=== PATIENT | female | born 1965 | race Caucasian/White ===

== ENCOUNTER 2018-08-24 15:44 | Emergency (ER) | payer OTHER, MEDICARE ==
[~2018-08-24] VITALS: Ht 170.2 cm; Wt 84.1 kg
[~2018-08-24 15:44] MED LIST: DULO30CA2 PO; FENO145T PO; ISOS30TA11 PO; METAMUCIL1 PKT PO; METF-960 PO; NITR0.4I3 SL; SIMV20TA6 PO; SODI104S3 NS; TRAZ150 PO; VICOT PO; [UNRECOGNIZED DRUG - CODE] PO; [UNRECOGNIZED DRUG - CODE] PO
[2018-08-24] MEDS ORDERED: NITROGLYCERIN 2% (1 GM=INCH) PACKET TP ONE (16:30)
[2018-08-24] MEDS ORDERED: CloNIDine HCL 0.1 MG TABLET PO ONE (16:30)
[2018-08-24] MEDS ORDERED: ACETAMINOPHEN 325 MG TABLET PO ONE (16:30)
[2018-08-24 16:54] LABS: BASOPHILS % (AUTO) 0.8 % (0.0-2.0); HEMATOCRIT 34.2 % (36-46); HEMOGLOBIN 11.4 g/dL (12.0-16.0); LYMPHOCYTES # (AUTO) 1.8 K/uL (1.0-4.8); LYMPHOCYTES % (AUTO) 30.9 % (22.0-44.0); MEAN CORPUSCULAR HEMOGLOBIN 27.1 pg (26.0-34.0); MEAN CORPUSCULAR HGB CONC 33.2 G/dL (31.0-37.0); MEAN CORPUSCULAR VOLUME 82 fL (80-100); MONOCYTES # (AUTO) 0.4 K/uL (0.1-1.0); MONOCYTES % (AUTO) 6.8 % (2.0-9.0); NEUTROPHILS # (AUTO) 3.4 K/uL (1.8-7.7); NEUTROPHILS % (AUTO) 58.5 % (40.0-70.0); PLATELET COUNT (AUTO) 278 K/uL (150-450); RED BLOOD CELL COUNT(AUTO) 4.19 MIL/uL (4.00-5.20); RED CELL DISTRIBUTION WIDTH 15.4 % (11.5-14.5)
[2018-08-24 17:19] LABS: INR 0.9 (0.9-1.1); PROTHROMBIN TIME 9.6 SEC (9.4-11.6)
[2018-08-24 17:35] LABS: ANION GAP 10 mmol/L (8-16); CALCIUM, TOTAL 8.5 mg/dL (8.8-10.5); CARBON DIOXIDE 27 mmol/L (22-29); CHLORIDE 102 mmol/L (98-107); CREATININE 0.71 mg/dL (0.60-1.30); GLOMERULAR FILTR. RATE CALC > 60 mL/min (>60); GLUCOSE,RANDOM 104 mg/dL (70-110); POTASSIUM 3.8 mmol/L (3.5-5.1); SODIUM SERUM 139 mmol/L (136-145); UREA NITROGEN, BLOOD 15 mg/dL (7-18)
[2018-08-24 17:40] LABS: B-TYPE NATRIURETIC PEPTIDE 50 pg/mL (0-100)
[2018-08-24 17:41] LABS: ALANINE AMINOTRANSFERASE 59 U/L (12-78); ALBUMIN 3.4 g/dL (3.4-5.0); ALKALINE PHOSPHATASE 135 U/L (46-116); ASPARTATE AMINOTRANSFERASE 27 U/L (15-37); BILIRUBIN,TOTAL 0.1 mg/dL (0.1-1.0); CREATINE KINASE, TOTAL ONLY 56 U/L (26-192); TOTAL PROTEIN, SERUM 7.5 g/dL (6.4-8.2)
[2018-08-24 17:48] LABS: APPEARANCE,URINE CLEAR (CLEAR)
[2018-08-24 17:49] LABS: BILIRUBIN,URINE NEGATIVE (NEGATIVE); GLUCOSE, URINE (UA) NEGATIVE (NEGATIVE); KETONES,URINE NEGATIVE (NEGATIVE); LEUKOCYTE ESTERASE ,URINE NEGATIVE (NEGATIVE); NITRATE,URINE NEGATIVE (NEGATIVE); OCCULT BLOOD,URINE NEGATIVE (NEGATIVE); PROTEIN,URINE NEGATIVE (NEGATIVE); UROBILINOGEN,URINE 0.2 mg/dL (<=1.0)
[2018-08-24 20:10] VITALS: BP 157/86
== END 2018-08-24 20:27 | disposition home or self-care (01) ==
LOC: EMS 15:44
DX: I10 Essential (primary) hypertension (principal); E11.9 Type 2 diabetes mellitus without complications; F17.210 Nicotine dependence, cigarettes, uncomplicated; Z88.2 Allergy status to sulfonamides; Z88.0 Allergy status to penicillin; Z79.84 Long term (current) use of oral hypoglycemic drugs
CPT/HCPCS: 93005

== ENCOUNTER 2020-03-04 21:52 | Emergency (ER) | payer MEDICARE, OTHER ==
[~2020-03-04] VITALS: Ht 162.6 cm; Wt 95.5 kg
[~2020-03-04 21:52] MED LIST changes: -DULO30CA2 PO; +DULO30CA96 PO; +SIMV-43 PO; -SIMV20TA6 PO
[2020-03-04] MEDS ORDERED: IBUP-2271 PO (23:31)
[2020-03-04] MEDS ORDERED: DIPH25CA85 PO (23:31)
[2020-03-05] MEDS ORDERED: HYDROmorphone 2 MG/ML SYRINGE IVP ONE (00:45)
[2020-03-05] MEDS ORDERED: ONDANSETRON HCL 4 MG/2 ML VIAL IVP ONE (00:45)
[2020-03-05] MEDS ORDERED: KETOROLAC TROMETHAMINE 30 MG/ML VIAL IVP ONE (00:45)
[2020-03-05] MEDS ORDERED: BACITRACIN 0.9 GM PACKET OINTMENT TP ONE (02:00)
[2020-03-05] MEDS ORDERED: PERTUSS(ACELL),DIPH,TET VAC/PF 0.5 ML VIAL IM ONE (02:00)
[2020-03-05] MEDS ORDERED: HYDROCODONE/ACETAMINOPHEN 5-325 MG TABLET PO ONE (02:00)
[2020-03-05 03:09] VITALS: BP 195/88
== END 2020-03-05 04:01 | disposition home or self-care (01) ==
LOC: EMS 21:52
DX: S42.252A Displaced fracture of greater tuberosity of left humerus, initial encounter for closed fracture (principal); S80.211A Abrasion, right knee, initial encounter; Z88.0 Allergy status to penicillin; Z88.8 Allergy status to other drugs, medicaments and biological substances; F17.210 Nicotine dependence, cigarettes, uncomplicated; W01.0XXA Fall on same level from slipping, tripping and stumbling without subsequent striking against object, initial encounter; Y93.89 Activity, other specified; Y92.89 Other specified places as the place of occurrence of the external cause; Y99.8 Other external cause status
CPT/HCPCS: 29105; 71045; 72040; 73060; 73090; 73130; 90471; 90715; 96374; 96375; 99284; 99406; J1170; J1885; J2405

== ENCOUNTER 2020-06-01 13:57 | Emergency (ER) | payer MEDICARE, OTHER ==
[~2020-06-01] VITALS: Ht 162.6 cm; Wt 100.0 kg
[~2020-06-01 13:57] MED LIST changes: +DIPH25CA85 PO; -DULO30CA96 PO; -FENO145T PO; +IBUP-2759 PO; -ISOS30TA11 PO; -METAMUCIL1 PKT PO; -METF-960 PO; -NITR0.4I3 SL; -SIMV-43 PO; -SODI104S3 NS; -VICOT PO; -[UNRECOGNIZED DRUG - CODE] PO; -[UNRECOGNIZED DRUG - CODE] PO
[2020-06-01] MEDS ORDERED: HYDR-1475 PO (14:35)
[2020-06-01] MEDS ORDERED: FERR-82 PO (14:35)
[2020-06-01] MEDS ORDERED: BUSP15 PO (14:35)
[2020-06-01] MEDS ORDERED: METF-960 PO (14:35)
[2020-06-01] MEDS ORDERED: ATOR40TA28 PO (14:36)
[2020-06-01] MEDS ORDERED: MORPHINE SULFATE 15 MG IR TABLET PO ONE (15:45)
[2020-06-01] MEDS ORDERED: ACETAMINOPHEN 325 MG TABLET PO ONE (16:00)
[2020-06-01] MEDS ORDERED: LIDOCAINE 5% TRANSDERMAL PATCH TD ONE (16:00)
[2020-06-01 17:07] LABS: CREATININE 1.28 mg/dL (0.60-1.30); POTASSIUM 3.4 mmol/L (3.5-5.1)
[2020-06-01 17:12] LABS: ALBUMIN 3.7 g/dL (3.4-5.0); BILIRUBIN,TOTAL 0.2 mg/dL (0.1-1.0); TOTAL PROTEIN, SERUM 7.7 g/dL (6.4-8.2)
[2020-06-01 18:41] VITALS: BP 212/115
== END 2020-06-01 19:06 | disposition home or self-care (01) ==
LOC: EMS 14:34
DX: M54.5 Low back pain (principal); M54.6 Pain in thoracic spine; I10 Essential (primary) hypertension; Z88.2 Allergy status to sulfonamides; Z79.899 Other long term (current) drug therapy; Z79.84 Long term (current) use of oral hypoglycemic drugs; Z88.8 Allergy status to other drugs, medicaments and biological substances
CPT/HCPCS: 72072; 72100

== ENCOUNTER 2022-11-13 15:24 | Emergency (ER) | payer MEDICARE, OTHER ==
[~2022-11-13] VITALS: Ht 162.6 cm; Wt 72.7 kg
[~2022-11-13 15:24] MED LIST changes: +ATOR40TA28 PO; +BUSP15 PO; +FERR-82 PO; +HYDR25TA2 PO; -IBUP-2759 PO; +METF-1211 PO; -TRAZ150 PO
[2022-11-13] MEDS ORDERED: MECLIZINE HCL 25 MG TABLET PO ONE (15:45)
[2022-11-13] MEDS ORDERED: ONDANSETRON HCL 4 MG TABLET PO ONE (15:45)
[2022-11-13 15:58] LABS: BASOPHILS % (AUTO) 0.6 % (0.0-2.0); EOSINOPHILS % (AUTO) 1.9 % (1.0-6.0); HEMATOCRIT 35.1 % (36-46); HEMOGLOBIN 11.4 g/dL (12.0-16.0); LYMPHOCYTES # (AUTO) 1.9 K/uL (1.0-4.8); LYMPHOCYTES % (AUTO) 16.7 % (22.0-44.0); MEAN CORPUSCULAR HEMOGLOBIN 27.1 pg (26.0-34.0); MEAN CORPUSCULAR HGB CONC 32.4 G/dL (31.0-37.0); MEAN CORPUSCULAR VOLUME 84 fL (80-100); MONOCYTES # (AUTO) 0.5 K/uL (0.1-1.0); MONOCYTES % (AUTO) 4.4 % (2.0-9.0); NEUTROPHILS # (AUTO) 8.5 K/uL (1.8-7.7); NEUTROPHILS % (AUTO) 76.4 % (40.0-70.0); PLATELET COUNT (AUTO) 324 K/uL (150-450); RED CELL DISTRIBUTION WIDTH 13.6 % (11.5-14.5)
[2022-11-13 16:42] LABS: CALCIUM, TOTAL 9.6 mg/dL (8.8-10.5); CREATININE 1.18 mg/dL (0.60-1.30); POTASSIUM 3.3 mmol/L (3.5-5.1)
[2022-11-13 16:46] LABS: BILIRUBIN,TOTAL 0.2 mg/dL (0.1-1.0); TOTAL PROTEIN, SERUM 7.9 g/dL (6.4-8.2)
[2022-11-13] MEDS ORDERED: METOPROLOL TARTRATE 25 MG TABLET PO ONE (17:15)
[2022-11-13] MEDS ORDERED: MECL-134 PO ×2 (18:33→20:22)
[2022-11-13 18:38] VITALS: BP 158/95
== END 2022-11-13 18:43 | disposition home or self-care (01) ==
LOC: EMS 15:26
DX: R42 Dizziness and giddiness (principal); M19.90 Unspecified osteoarthritis, unspecified site; E11.9 Type 2 diabetes mellitus without complications; I10 Essential (primary) hypertension; Z98.890 Other specified postprocedural states; Z87.891 Personal history of nicotine dependence; Z88.2 Allergy status to sulfonamides; Z88.8 Allergy status to other drugs, medicaments and biological substances
CPT/HCPCS: 99285; 70450; 71045; 80053; 82550; 83880; 84484; 85025; 36415; 93005; Q0162